=== PATIENT | male | born 2005 | race Caucasian/White ===

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

== ENCOUNTER 2023-01-02 16:17 | Emergency (ER) | payer OTHER ==
[~2023-01-02] VITALS: Ht 167.6 cm; Wt 63.6 kg
[~2023-01-02 16:17] MED LIST changes: -NOCURR; +PRED-554 PO; +VALA100026 PO
[2023-01-02 17:16] VITALS: TEMP 98
[2023-01-02] MEDS ORDERED: IBUPROFEN 600 MG TABLET PO ONE (18:45)
[2023-01-02] MEDS ORDERED: LIDOCAINE 5% TRANSDERMAL PATCH TD ONE (18:45)
[2023-01-02] MEDS ORDERED: BACLOFEN 10 MG TABLET PO ONE (18:45)
[2023-01-02 18:52] VITALS: BP 119/88; PULSE 68; RESP 15
[2023-01-02] MEDS ORDERED: BACL10TA PO (22:04)
[2023-01-02] MEDS ORDERED: IBUP-1492 PO (22:05)
== END 2023-01-02 22:14 | disposition home or self-care (01) ==
LOC: EMS 16:31
DX: M54.50 Low back pain, unspecified (principal)
CPT/HCPCS: 72100; 99284; Z7502; Z7610